=== PATIENT | male | born 1980 | race African-American/Black ===

== ENCOUNTER 2017-12-18 05:48 | Inpatient (IN) | payer OTHER, SELFPAY ==
[2017-12-18] VITALS (16 sets, daily range): BP systolic 90–149; BP diastolic 59–102; PULSE 56–80; RESP 14–25; TEMP 36.1–36.7; O2SAT 94–100
--- NOTE | 2017-12-18 05:49 | ED.ABDPAIN ---
HPI - Abdominal Pain <Momo Sage DO - Last Filed: 12/18/17 18:59> General Chief Complaint: Abdominal Pain Stated Complaint: ADMINAL PAIN X1 DAY Time Seen by Provider: 12/18/17 05:49 Source: patient Mode of arrival: ambulatory Limitations: no limitations History of Present Illness HPI narrative: 37-year-old male here for evaluation of abdominal pain. Patient states that it started approximately 9 o'clock last evening. He states it has been consistent since then. He states that he has a baseline abdominal pain that worsens in a cramping like feeling. He stated that he also had diarrhea last night that was nonbloody that did changes abdominal pain. Also had nausea and vomiting last evening which did not changes abdominal pain. He states that he has had a bowel obstruction in the past with an unknown etiology however did not have any surgery for this. No prior abdominal surgeries. Related Data Home Medications Medication Instructions Recorded Confirmed No Known Home Medications 12/18/17 12/18/17 Allergies Allergy/AdvReac Type Severity Reaction Status Date / Time No Known Drug Allergies Allergy Verified 12/18/17 05:55 Review of Systems <DO Suzanne Lawson Last Filed: 12/18/17 18:59> Constitutional Denies fatigue and Denies fever(s) Cardiovascular Denies chest pain and Denies dyspnea Respiratory Denies dyspnea Gastrointestinal Gastrointestinal: Reports abdominal pain, Denies constipation, Reports diarrhea, Reports nausea and Reports vomiting Genitourinary Denies dysuria Musculoskeletal Denies myalgias and Denies arthralgias Integumentary/Breasts Denies lesions and Denies rash Endocrine Denies fatigue Hematologic/Lymphatic Denies easy bleeding and Denies easy bruising Exam <DO Suzanne Lawson Last Filed: 12/18/17 18:59> Initial Vital Signs Initial Vital Signs: Vital Signs Temperature 97.9 F 12/18/17 05:51 Pulse Rate 80 12/18/17 05:51 Respiratory Rate 14 12/18/17 05:51 Blood Pressure 144/89 H 12/18/17 05:51 Pulse Oximetry 100 12/18/17 05:51 Const General: cooperative, No comfortable ( uncomfortable.), well developed, well groomed and No acute distress Orientation: alert, awake and oriented x3 HENMT Head: normal to inspection and normocephalic Resp Effort & Inspection: normal respiratory effort Auscultation: clear to auscultation bilaterally Cardio Rate: regular rate Rhythm: regular rhythm Pulses: radial pulses present GI Inspection: non-distended Palpation: soft, No firm, No guarding, No rigid and tender ( Diffuse abdominal tenderness) Skin Lesions: no lesions Rashes: no rashes Neuro General: alert, awake and oriented x3 Extrem General: capillary refill normal Psych Appearance: grossly normal and well kempt <Coco Pierce, DO - Last Filed: 12/18/17 10:25> Initial Vital Signs Initial Vital Signs: Vital Signs Temperature 97.9 F 12/18/17 05:51 Pulse Rate 80 12/18/17 05:51 Respiratory Rate 14 12/18/17 05:51 Blood Pressure 144/89 H 12/18/17 05:51 Pulse Oximetry 100 12/18/17 05:51 Course <Momo Sage, DO - Last Filed: 12/18/17 18:59> Orders Ordered: Al Hydrox/Mg Hydrox/Simethicone (Maalox Plus) 30 ml PO Q6HR WAI Last Admin: 12/18/17 17:53 Dose: 30 ml Docusate Sodium (Colace) 100 mg PO BID PRN PRN Reason: Constipation Dextrose/Sodium Chloride (Dextrose 5%-0.45% Ns) 1,000 mls @ 100 mls/hr IV CONT WAI Last Admin: 12/18/17 14:22 Dose: 100 mls/hr Ibuprofen (Advil) 600 mg PO Q6HR PRN PRN Reason: As Needed for Fever/Mild Pain Last Admin: 12/18/17 17:53 Dose: 600 mg Metoclopramide HCl (Reglan) 10 mg IV Q4H PRN PRN Reason: Nausea Last Admin: 12/18/17 18:20 Dose: 10 mg Morphine Sulfate (Morphine) 2 mg IV Q4HR PRN PRN Reason: Pain, Moderate (4-6) Ondansetron HCl (Zofran) 4 mg IV Q6HR PRN PRN Reason: Nausea Last Admin: 12/18/17 16:09 Dose: 4 mg Oxycodone/Acetaminophen (Percocet 5/325) 1 tab PO Q4HR PRN PRN Reason: Pain, Moderate (4-6) Ranitidine HCl (Zantac) 150 mg PO BID [facility] Discontinued Medications Sodium Chloride 1,000 ml/ (Bacitracin 50,000 unit) 0 ml IRR NOW ONE Stop: 12/18/17 12:33 Last Admin: 12/18/17 12:32 Dose: 50,000 irrig.soln Fentanyl (Sublimaze) 50 mcg IV Q5MIN PRN PRN Reason: Pain, Moderate (4-6) Hydromorphone HCl (Dilaudid) 0.5 mg IV NOW ONE Stop: 12/18/17 08:05 Last Admin: 12/18/17 08:15 Dose: 0.5 mg Hydromorphone HCl (Dilaudid) 0.5 mg IV Q5MIN PRN PRN Reason: Pain, Moderate (4-6) Hydromorphone HCl (Dilaudid) 0.5 mg IV Q5MIN PRN PRN Reason: Pain, Moderate (4-6) Sodium Chloride (Normal Saline 0.9%) 1,000 mls @ 1,000 mls/hr IV BOLUS ONE Stop: 12/18/17 06:57 Last Infusion: 12/18/17 09:16 Dose: 0 mls/hr Admin: 12/18/17 06:14 Dose: 1,000 mls/hr Cefotetan Disodium/Dextrose (Cefotan) 2 gm in 50 mls @ 100 mls/hr IV NOW ONE Stop: 12/18/17 10:51 Last Infusion: 12/18/17 11:29 Dose: 0 mls/hr Admin: 12/18/17 11:20 Dose: 100 mls/hr Lactated Ringer's (Lactated Ringers) 1,000 mls @ 100 mls/hr IV CONT WAI Last Infusion: 12/18/17 13:33 Dose: 0 mls/hr Admin: 12/18/17 10:15 Dose: 100 mls/hr Lactated Ringer's (Lactated Ringers) 1,000 mls @ 42 mls/hr IV CONT WAI Influenza Virus Vaccine (Flu Vaccine) 0.5 ml IM .ONCE ONE Stop: 12/18/17 18:39 Lorazepam (Ativan) 0.25 mg IV Q30MIN PRN PRN Reason: Anxiety Meperidine HCl (Demerol) 12.5 mg IV NOW PRN PRN Reason: Mild pain or shivering Meperidine HCl (Demerol) 25 mg IV Q5MIN PRN PRN Reason: Pain or shivering Metoclopramide HCl (Reglan) 10 mg IV NOW PRN PRN Reason: Nausea And Vomiting Last Admin: 12/18/17 13:45 Dose: 10 mg Morphine Sulfate (Morphine) 4 mg IV NOW ONE Stop: 12/18/17 05:59 Last Admin: 12/18/17 06:14 Dose: 4 mg Morphine Sulfate (Morphine) 1 mg IV Q2HR PRN PRN Reason: Pain, Moderate (4-6) Last Admin: 12/18/17 10:09 Dose: 1 mg Ondansetron HCl (Zofran) 4 mg IV NOW ONE Stop: 12/18/17 05:59 Last Admin: 12/18/17 06:14 Dose: 4 mg Vital Signs - 8 hr 12/18/17 12:35 12/18/17 12:40 12/18/17 12:45 Temperature 97.7 F 97.7 F 97.5 F L Pulse Rate 77 77 72 Respiratory Rate 16 18 20 Blood Pressure 93/63 93/63 93/64 Pulse Oximetry 100 100 100 12/18/17 13:00 12/18/17 13:15 12/18/17 13:30 Temperature 97 F L 97 F L 98 F Pulse Rate 66 65 56 L Respiratory Rate 16 25 H 16 Blood Pressure 94/65 108/78 101/70 Pulse Oximetry 100 96 100 12/18/17 13:45 12/18/17 14:00 12/18/17 14:10 Temperature 98 F 97.1 F L Pulse Rate 67 58 L Respiratory Rate 16 14 Blood Pressure 107/67 122/70 Pulse Oximetry 100 100 100 12/18/17 14:30 12/18/17 15:00 12/18/17 16:00 Temperature 98.0 F 97.0 F L 97.2 F L Pulse Rate 70 73 Respiratory Rate 16 16 16 Blood Pressure 101/61 100/59 L 90/59 L Pulse Oximetry 100 99 94 <Coco Pierce DO - Last Filed: 12/18/17 10:25> Orders Ordered: Al Hydrox/Mg Hydrox/Simethicone (Maalox Plus) 30 ml PO Q6HR WAI Last Admin: 12/18/17 17:53 Dose: 30 ml Docusate Sodium (Colace) 100 mg PO BID PRN PRN Reason: Constipation Dextrose/Sodium Chloride (Dextrose 5%-0.45% Ns) 1,000 mls @ 100 mls/hr IV CONT WAI Last Admin: 12/18/17 14:22 Dose: 100 mls/hr Ibuprofen (Advil) 600 mg PO Q6HR PRN PRN Reason: As Needed for Fever/Mild Pain Last Admin: 12/18/17 17:53 Dose: 600 mg Metoclopramide HCl (Reglan) 10 mg IV Q4H PRN PRN Reason: Nausea Last Admin: 12/18/17 18:20 Dose: 10 mg Morphine Sulfate (Morphine) 2 mg IV Q4HR PRN PRN Reason: Pain, Moderate (4-6) Ondansetron HCl (Zofran) 4 mg IV Q6HR PRN PRN Reason: Nausea Last Admin: 12/18/17 16:09 Dose: 4 mg Oxycodone/Acetaminophen (Percocet 5/325) 1 tab PO Q4HR PRN PRN Reason: Pain, Moderate (4-6) Ranitidine HCl (Zantac) 150 mg PO BID WAI Discontinued Medications Sodium Chloride 1,000 ml/ (Bacitracin 50,000 unit) 0 ml IRR NOW ONE Stop: 12/18/17 12:33 Last Admin: 12/18/17 12:32 Dose: 50,000 irrig.soln Fentanyl (Sublimaze) 50 mcg IV Q5MIN PRN PRN Reason: Pain, Moderate (4-6) Hydromorphone HCl (Dilaudid) 0.5 mg IV NOW ONE Stop: 12/18/17 08:05 Last Admin: 12/18/17 08:15 Dose: 0.5 mg Hydromorphone HCl (Dilaudid) 0.5 mg IV Q5MIN PRN PRN Reason: Pain, Moderate (4-6) Hydromorphone HCl (Dilaudid) 0.5 mg IV Q5MIN PRN PRN Reason: Pain, Moderate (4-6) Sodium Chloride (Normal Saline 0.9%) 1,000 mls @ 1,000 mls/hr IV BOLUS ONE Stop: 12/18/17 06:57 Last Infusion: 12/18/17 09:16 Dose: 0 mls/hr Admin: 12/18/17 06:14 Dose: 1,000 mls/hr Cefotetan Disodium/Dextrose (Cefotan) 2 gm in 50 mls @ 100 mls/hr IV NOW ONE Stop: 12/18/17 10:51 Last Infusion: 12/18/17 11:29 Dose: 0 mls/hr Admin: 12/18/17 11:20 Dose: 100 mls/hr Lactated Ringer's (Lactated Ringers) 1,000 mls @ 100 mls/hr IV CONT WAI Last Infusion: 12/18/17 13:33 Dose: 0 mls/hr Admin: 12/18/17 10:15 Dose: 100 mls/hr Lactated Ringer's (Lactated Ringers) 1,000 mls @ 42 mls/hr IV CONT WAI Influenza Virus Vaccine (Flu Vaccine) 0.5 ml IM .ONCE ONE Stop: 12/18/17 18:39 Lorazepam (Ativan) 0.25 mg IV Q30MIN PRN PRN Reason: Anxiety Meperidine HCl (Demerol) 12.5 mg IV NOW PRN PRN Reason: Mild pain or shivering Meperidine HCl (Demerol) 25 mg IV Q5MIN PRN PRN Reason: Pain or shivering Metoclopramide HCl (Reglan) 10 mg IV NOW PRN PRN Reason: Nausea And Vomiting Last Admin: 12/18/17 13:45 Dose: 10 mg Morphine Sulfate (Morphine) 4 mg IV NOW ONE Stop: 12/18/17 05:59 Last Admin: 12/18/17 06:14 Dose: 4 mg Morphine Sulfate (Morphine) 1 mg IV Q2HR PRN PRN Reason: Pain, Moderate (4-6) Last Admin: 12/18/17 10:09 Dose: 1 mg Ondansetron HCl (Zofran) 4 mg IV NOW ONE Stop: 12/18/17 05:59 Last Admin: 12/18/17 06:14 Dose: 4 mg Vital Signs - 8 hr 12/18/17 12:35 12/18/17 12:40 12/18/17 12:45 Temperature 97.7 F 97.7 F 97.5 F L Pulse Rate 77 77 72 Respiratory Rate 16 18 20 Blood Pressure 93/63 93/63 93/64 Pulse Oximetry 100 100 100 12/18/17 13:00 12/18/17 13:15 12/18/17 13:30 Temperature 97 F L 97 F L 98 F Pulse Rate 66 65 56 L Respiratory Rate 16 25 H 16 Blood Pressure 94/65 108/78 101/70 Pulse Oximetry 100 96 100 12/18/17 13:45 12/18/17 14:00 12/18/17 14:10 Temperature 98 F 97.1 F L Pulse Rate 67 58 L Respiratory Rate 16 14 Blood Pressure 107/67 122/70 Pulse Oximetry 100 100 100 12/18/17 14:30 12/18/17 15:00 12/18/17 16:00 Temperature 98.0 F 97.0 F L 97.2 F L Pulse Rate 70 73 Respiratory Rate 16 16 16 Blood Pressure 101/61 100/59 L 90/59 L Pulse Oximetry 100 99 94 MDM - Abdominal Pain <Momo Sage DO - Last Filed: 12/18/17 18:59> Lab Data Attestation: I reviewed the patient's lab results. Result diagrams: 12/18/17 06:05 12/18/17 06:05 Lab Results 12/18/17 12/18/17 12/18/17 Range/Units 06:05 06:05 06:05 WBC 8.5 (4.5-11.0) X10^3/uL RBC 5.76 (4.5-5.9) X10^6/uL Hgb 16.0 (13.5-17.5) g/dL Hct 46.7 (41-53) % MCV 81.0 (80-100) fL MCH 27.7 (26-34) PG MCHC 34.2 (30-36) % RDW 13.5 (11.6-14.8) % Plt Count 171 (150-400) X10^3/uL Neut % (Auto) 75.0 (50-75) % Lymph % (Auto) 19.7 L (25-40) % [place] % (Auto) 4.3 (3-14) % Eos % (Auto) 0.3 L (2-4) % Baso % (Auto) 0.7 (0-2) % Neut # (Auto) 6400 H (5543-2467) /uL Sodium 147 H (137-145) mmol/L Potassium 3.8 (3.4-5.1) mmol/L Chloride 101 (98-107) mmol/L Carbon Dioxide 34 H (22-32) mmol/L BUN 15 (9-20) mg/dL Creatinine 1.10 (0.66-1.25) mg/dL Estimated GFR > 60.0 (>60) mL/min BUN/Creatinine Ratio 13.6 (6-22) Glucose 114 H (70-100) mg/dL Lactate 1.3 (0.7-2.1) mmol/L Calcium 10.1 (8.4-10.2) mg/dL Total Bilirubin 0.8 (0.2-1.3) mg/dL AST 23 (17-59) IU/L ALT 27 (21-72) IU/L Alkaline Phosphatase 67 (38-126) U/L Total Protein 8.2 (6.3-8.2) g/dL Albumin 4.7 (3.5-5.0) g/dL Globulin 3.5 (1.7-4.1) g/dL Albumin/Globulin Ratio 1.3 (1.0-2.8) Lipase 59 (23-300) U/L Point of care testing: Point of Care Testing Glucose POC 108 MDM Narrative Medical decision making narrative: Labs unremarkable. Awaiting results of CT scan. Care turned over today provider at change of shift for disposition after return of CT scan <Coco Pierce, DO - Last Filed: 12/18/17 10:25> Medical Records Attestation: I reviewed the patient's medical records. Lab Data Attestation: I reviewed the patient's lab results. Lab Results 12/18/17 12/18/17 12/18/17 Range/Units 06:05 06:05 06:05 WBC 8.5 (4.5-11.0) X10^3/uL RBC 5.76 (4.5-5.9) X10^6/uL Hgb 16.0 (13.5-17.5) g/dL Hct 46.7 (41-53) % MCV 81.0 (80-100) fL MCH 27.7 (26-34) PG MCHC 34.2 (30-36) % RDW 13.5 (11.6-14.8) % Plt Count 171 (150-400) X10^3/uL Neut % (Auto) 75.0 (50-75) % Lymph % (Auto) 19.7 L (25-40) % [place] % (Auto) 4.3 (3-14) % Eos % (Auto) 0.3 L (2-4) % Baso % (Auto) 0.7 (0-2) % Neut # (Auto) 6400 H (6802-2550) /uL Sodium 147 H (137-145) mmol/L Potassium 3.8 (3.4-5.1) mmol/L Chloride 101 (98-107) mmol/L Carbon Dioxide 34 H (22-32) mmol/L BUN 15 (9-20) mg/dL Creatinine 1.10 (0.66-1.25) mg/dL Estimated GFR > 60.0 (>60) mL/min BUN/Creatinine Ratio 13.6 (6-22) Glucose 114 H (70-100) mg/dL Lactate 1.3 (0.7-2.1) mmol/L Calcium 10.1 (8.4-10.2) mg/dL Total Bilirubin 0.8 (0.2-1.3) mg/dL AST 23 (17-59) IU/L ALT 27 (21-72) IU/L Alkaline Phosphatase 67 (38-126) U/L Total Protein 8.2 (6.3-8.2) g/dL Albumin 4.7 (3.5-5.0) g/dL Globulin 3.5 (1.7-4.1) g/dL Albumin/Globulin Ratio 1.3 (1.0-2.8) Lipase 59 (23-300) U/L Point of care testing: Point of Care Testing Glucose POC [address] scan - abdomen: Radiologist's impression: power and recovery shift engineer report: No oral or rectal contrast is present. There is moderate fluid and gas in the stomach and mild fluid in the duodenal bulb. Collapsed duodenum and few collapse to Junel do. There is abnormal E dilated fluid-filled mid small bowel in the lower abdomen and upper pelvis, maximum diameter about 3.4 cm. Collapsed terminal ileal loops seen in the right lower quadrant. Findings consistent with high-grade small-bowel obstruction, zone of transition possibly near the right anterior pelvic side wall involving mid to distal small bowel. It may be more inferiorly to the pelvis. Most of the colon is collapsed. MDM Narrative Medical decision making narrative: Patient signed out to me by Dr. Sage. I have seen evaluated patient myself. Abdomen remains tender mild distension he is no longer feeling nauseated I have spoken with Dr. Ceja surgery who requested NG tube and he will see and evaluate patient later. After evaluation patient her needed NG tube. Patient will be admitted to floor possible surgery. Discharge Plan Departure Patient Disposition: Admitted As Inpatient Clinical Impression: SBO (small bowel obstruction) Discharge Date/Time: 12/18/17 09:32 Interventions: ED Discharge Assessment Last Done: 12/18/17 09:30 Admit Date/Time: 12/18/17 09:02 Admit Provider: Guilherme Mclain
--- NOTE | 2017-12-18 05:59 | DI.CT.S_ITS ---
PROCEDURE: CT ABDOMEN PELVIS W CON INDICATIONS: generalized abd pain TECHNIQUE: After the administration of intravenous contrast, 5 mm thick sections acquired from the diaphragm to the symphysis. 5 mm coronal and sagittal reformats were acquired. For radiation dose reduction, the following was used: automated exposure control, adjustment of mA and/or kV according to patient size. COMPARISON: None. FINDINGS: Image quality: Excellent. ABDOMEN: Lung bases: Lung bases are clear. Heart size is normal. Solid organs: Liver is enlarged. Gallbladder is unremarkable. Biliary system is non dilated. Pancreas enhances normally. Spleen is normal in size and enhancement. No adrenal nodules. Kidneys demonstrate normal size and enhancement, without hydronephrosis. Peritoneum and bowel: There are probably dilated fluid filled loops of small bowel within the lower abdomen and pelvis. Duodenum and jejunum appear collapsed. Terminal ileum also appears collapsed as well as nondistended colon. Transition point appears to be within the anterior right pelvic sidewall. No visualized free air. Minimal pelvic free fluid. Nodes and vessels: No retroperitoneal or mesenteric adenopathy by size criteria. Aorta and inferior vena cava are normal in size. Miscellaneous: No ventral hernias. PELVIS: Genitourinary: Bladder wall thickness is normal. Miscellaneous: No inguinal hernias or adenopathy. Bones: No suspicious bony lesions. No vertebral body compression fractures. IMPRESSION: 1. High-grade small bowel obstruction with transition point suspected in the anterior right pelvic sidewall. No free air. Dictated by: Vanesa Sanford M.D. on 12/18/2017 at 9:32 Approved by: Vanesa Sanford M.D. on 12/18/2017 at 9:36
--- NOTE | 2017-12-18 06:13 | PC.NURSE ---
Pt appears to be very uncomfortable. pt keeps moving trying to get comfortable. he states his pain comes in waves or cramps. when a cramp occurs pt is unable to speak. pt family brought back to bedside. Pt stated this is really hurting you when pt asked for pain medication. states he never wants anything for pain.
[2017-12-18] MEDS: MORPHINE 4 MG/ML INJ IV (06:14)
[2017-12-18] MEDS: SODIUM CHLORIDE 0.9% 1,000 ML 1000 ML IV (06:14)
[2017-12-18] MEDS: ONDANSETRON 4 MG/2 ML INJ IV ×3 (06:14→21:09)
[2017-12-18 06:18] LABS: Add Manual Diff / Slide Review NO; Basophils Percent Auto 0.7 % (0-2); Eosinophils Percent Auto 0.3 % (2-4); Hematocrit 46.7 % (41-53); Lymphocytes Percent Auto 19.7 % (25-40); Mean Corpuscular HGB Conc 34.2 % (30-36); Mean Corpuscular Hemoglobin 27.7 PG (26-34); Monocytes Percent Auto 4.3 % (3-14); Neutrophils Absolute Auto 6400 /uL (3000-5900); Platelet Count 171 X10^3/uL (150-400); Red Blood Cell Count 5.76 X10^6/uL (4.5-5.9); Red Cell Distribution Width 13.5 % (11.6-14.8); White Blood Cell Count 8.5 X10^3/uL (4.5-11.0)
[2017-12-18 06:24] LABS: Alanine Aminotransferase 27 IU/L (21-72); Albumin 4.7 g/dL (3.5-5.0); Albumin Globulin Ratio 1.3 (1.0-2.8); Alkaline Phosphatase 67 U/L (38-126); Aspartate Aminotransferase 23 IU/L (17-59); BUN Creatinine Ratio 13.6 (6-22); Bilirubin Total 0.8 mg/dL (0.2-1.3); Blood Urea Nitrogen 15 mg/dL (9-20); Calcium 10.1 mg/dL (8.4-10.2); Carbon Dioxide 34 mmol/L (22-32); Chloride 101 mmol/L (98-107); Estimated Glomerular Filt Rate > 60.0 mL/min (>60); Globulin 3.5 g/dL (1.7-4.1); Glucose 114 mg/dL (70-100); HEMOLYSIS < 15 (0-50); Lipase 59 U/L (23-300); Potassium 3.8 mmol/L (3.4-5.1); Sodium 147 mmol/L (137-145); Total Protein 8.2 g/dL (6.3-8.2)
[2017-12-18 06:25] LABS: Lactate (Lactic Acid) 1.3 mmol/L (0.7-2.1)
[2017-12-18] MEDS: HYDROMORPHONE 1 MG INJ 0.5 MG IV (08:15)
[2017-12-18] MEDS: MORPHINE 2 MG/ML INJ 1 MG IV (10:09)
[2017-12-18] MEDS: LACTATED RINGERS 1,000 ML 100 ML IV (10:15)
[2017-12-18] MEDS: CEFOTETAN 2 GM/50 ML PIGGYBACK IV (11:20)
--- NOTE | 2017-12-18 11:49 | SUR.OPER ---
Supine on padded OR bed, head on pillow, arms secured on padded arm boards at <90 degrees abduction, legs uncrossed, safety belt at thigh, tape over blanket over lower legs.
[2017-12-18] MEDS: SODIUM CHLORIDE IRRIG SOLUTION 1,000 ML, BACITRACIN 50,000 UNIT IRR (12:32)
--- NOTE | 2017-12-18 13:30 | SUR.PHASEI ---
[address] whittington at bedside
--- NOTE | 2017-12-18 13:39 | HP_ITS ---
DATE OF SERVICE: 12/18/2017 HISTORY OF PRESENT ILLNESS: The patient is 37-year-old [facility] male who comes the emergency room was sudden onset of severe abdominal pain and vomiting. Pain is a 10/10. He had a CT scan done which shows a high-grade small-bowel obstruction in the terminal ilium with a very well-defined endpoint. The peculiar part of his history is the patient has had no prior abdominal surgery, and he had a very similar identical episode about 2-1/2 years ago. Nothing was done at that point. The obstruction seemed to be relieved, and he has gone on for last 2 years with no significant symptoms abdominal pain and vomiting. The patient denies history which would make one think of Crohns disease. Denies hematochezia or diarrhea. He has no other medical or surgical disorders. PAST MEDICAL HISTORY: Denies diabetes, heart disease, or hypertension. PAST SURGICAL HISTORY: He has no prior surgery. ALLERGIES: HAS NO KNOWN ALLERGIES. MEDICATIONS: Takes no medications REVIEW OF SYSTEMS: Negative or chest pain or unusual or shortness breath. G.I. is as mentioned in HPI. : Negative. NEUROLOGIC: Negative for strokes or seizures. PHYSICAL EXAMINATION VITAL SIGNS: Temperature 97.7, blood pressure 150/100, heart rate 62. HEENT: Ears, nose, and throat normal. NECK: No adenopathy. CHEST: Lungs are clear. HEART: Regular rhythm. No murmur. ABDOMEN: Somewhat distended, tender in the right periumbilical area and toward the left lower quadrant. IMPRESSION: Recurrent small-bowel obstruction, unknown etiology. PLAN: I have had a zia and lengthy discussion with the patient and his family who understand clearly that is difficult to evaluate the small bowel with scopes. We may or may not be able to enter the terminal ilium with the colonoscope, and certainly capsule endoscopy with photographs taken as the capsule passes the small bowel might be indicated but then again may get obstructed at that point, so I have offered the patient's exploratory laparotomy suggesting the strong possibility of a small-bowel resection for what could be a benign tumor, could be a stricture, could be related to some other inflammatory process that we are not aware of in this patient with very negative past medical history. So, he agrees him would like to have open incision and correction of this problem which has been incapacitating, so we will plan exploratory laparotomy and small-bowel resection at this time. PETER COLLINS - Lindsey/ doc#: [id number]/job#: [id number] dd: 12/18/2017 10:21:00 dt: 12/18/2017 12:24:00 DICTATING /COPIES TO: Guilherme Mclain MD COPIES MNE: DEBRA
--- NOTE | 2017-12-18 13:44 | OP_ITS ---
DATE OF SERVICE: 12/18/2017 PREOP DIAGNOSIS: Small-bowel obstruction, unknown etiology. 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 PROCEDURE: Exploratory laparotomy, evacuation of obstructing phytobezoar from distal jejunum, early ileum. SURGEON: Guilherme Mclain MD DESCRIPTION OF PROCEDURE: The patient was given a general endotracheal anesthetic plus a supplemental epidural by the anesthesiologist. He was properly identified during surgical pause, prepped and draped in a sterile fashion exposing the lower abdomen. A low midline incision was made. The abdomen explored. I evacuated the distended small bowel, placed an Leo wound protector/retractor in the midline incision, and ran the bowel from the ligament of Treitz to the ileocecal valve. In the distal jejunum, there was a mass of what turned out to be a phytobezoar obstructing the lumen. I actually could milk that bezoar distally with my fingers, elected not to try to milk it all the way to the colon. It was about 5- cm long and completely distended and obstructed the small-bowel lumen at that point. The area containing that bezoar had no lead point of obstructing tissue no sign of tumor, no abnormality in the mesentery, no palpable mass within the bowel itself. So I placed a purse string of 3-0 Vicryl in the sidewall of the anti-mesenteric surface of the jejunum and evacuated the bezoar by compression using forceps and irrigation and completely removed what appeared to be some yellowish fiber vegetation that the patient had ingested. He had just gotten back from [place] several days ago, so it may have some relationship to that trip. In any event, once this was completely evacuated, I closed the pursestring suture and then oversewed that area of Lambert sutures of 3-0 silk to completely bury the enterotomy that I made to evacuate the bezoar. Then, I very carefully inspected and palpated that segment of bowel again. I could not find nor palpate any obstructing tumor or intussusception or any such abnormality that I was looking for. After irrigating the abdomen with copious amounts of bacitracin saline, I close a fashion with #1 Maxon, close the subq with Vicryl and stapled the skin. During the evacuation of the bezoar, there was absolutely no spillage of any material into the peritoneal cavity. The procedure was well tolerated, with sterile dressing applied. PETER COLLINS - Lindsey/ doc#: [id number]/job#: [id number] dd: 12/18/2017 12:46:00 dt: 12/18/2017 13:18:00 DICTATING /COPIES TO: Guilherme Mclain MD COPIES MNE: DEBRA
[2017-12-18] MEDS: METOCLOPRAMIDE 10 MG/2 ML INJ IV ×2 (13:45→18:20)
[2017-12-18] MEDS: DEXTROSE 5%-0.45% NS 1,000 ML 100 ML IV (14:22)
[2017-12-18] MEDS: MAG HYDROX/ALUM/SIMETH 30 ML UDC PO (17:53)
[2017-12-18] MEDS: IBUPROFEN 600 MG TABLET PO (17:53)
--- NOTE | 2017-12-18 22:39 | PC.NURSE ---
Addendum entered by Valerie Parekh R.N. 12/18/17 23:47: Dr Ceja orders to let pt try to urinate later on tonight, if pt gets uncomfortable, then straight catheter in/out once. Pt denies pain and reports I'll be able to go later on. Pt is back to bed resting with eyes closed. Original Note: 2130-Pt N/V 700mL emesis, clear light yellow (apple juice/water). Medicated with zofran 4mL IVP, effective. Pt up to BRP to void but unsuccessful. States its right there, but I can't get it out. Bladder scanned for 360mL. Pt back to bed to try in a short while. Pt understands to urinate and catheterization if unable to urinate. earlier @ 1600 pt c/o nausea, medicated with zofran, effective. 1829 pt c/o nausea again, medicated with raglan 10mg, effective. BT +, denies pain throughout shift. LFA D5 1/2 NS @ 100. Pt remains sleepy, but awakens easily.
[2017-12-19 00:30] VITALS: BP 115/67; PULSE 60; RESP 16; TEMP 36.2; O2SAT 97
[2017-12-19] MEDS: DEXTROSE 5%-0.45% NS 1,000 ML 100 ML IV ×3 (00:46→17:18)
[2017-12-19] MEDS: METOCLOPRAMIDE 10 MG/2 ML INJ IV (00:46)
[2017-12-19] MEDS: MAG HYDROX/ALUM/SIMETH 30 ML UDC PO ×2 (05:32→19:49)
[2017-12-19 06:14] VITALS: BP 125/86; PULSE 68; RESP 16; TEMP 36.7; O2SAT 97
[2017-12-19 07:15] VITALS: BP 131/88; PULSE 62; RESP 18; TEMP 36.8; O2SAT 99
--- NOTE | 2017-12-19 09:20 | CM.DANOTE ---
DCP/Continued: Reviewed chart. Patient is a 37yr old male admitted to [facility] with abdominal pain. PCP is [facility] in [place]. Primary payor is 1)[employer]. Met with patient and spouse at bedside explained CM/SW role. Patient with SBO and underwent surgery on 12-18-17. Patient reports that he is completely I in all ADL's and plans to return home when medically stable. P: Home when stable. YULIANA Ni Discharge Planning/Care Management CM Discharge Assessment Start: 12/19/17 09:15 Freq: Status: Active Protocol: Document 12/19/17 09:15 KJS (Rec: 12/19/17 09:20 KJS [id number]) Discharge Planning Assessment Assigned Inventory Planner YULIANA Ni Contact Information Brittany Simons (spouse) Advance Directives? No History Provided By Patient Significant Other Has Patient been admitted in last 30 No days? Prior Living Arrangements House Household Members spouse Type of transporation used prior to Drives own vehicle admit Independent with ADL's Yes Is patient alert and oriented? Yes Caregiver for Another No Barriers to Discharge No Discharge Plan Home Transportation Arrangement Spouse will provide transport home. Referrals Initiated None needed Whiteboard Updated in Patient Room with Yes name and ext. # of Inventory Planner Please Provide Date Initial DC 12/19/17 Assessment Was Performed
[2017-12-19 11:45] VITALS: BP 124/83; PULSE 64; RESP 18; TEMP 36.8; O2SAT 98
--- NOTE | 2017-12-19 13:29 | PC.NURSE ---
Pt had order to advance diet as tolerated, gave him clear liquids at breakfast, full liquids at lunch, and has had no complaints of nausea, pain, and is passing flatus. Advanced him to regular diet for dinner.
--- NOTE | 2017-12-19 14:29 | PM.PN.1 ---
Subjective Date Patient Seen: 12/19/17 Time Patient Seen: 14:29 Interval history: Very pleasant gentleman who is postop day 1 after exploratory laparotomy with excision of a small-bowel phyto bezoar. He reports he is feeling well. He did have a bowel movement this morning and has been walking in the halls. He has been tolerating clear liquids without difficulty. He denies any significant pain at this point. He denies any nausea. Exam Vital Signs (past 8 hours): - 12/19/17 07:15 Temperature 98.2 F Pulse Rate 62 Respiratory Rate 18 Blood Pressure 131/88 Pulse Oximetry 99 Oxygen Delivery Method Room Air Oxygen Flow Rate 0 Narrative Exam Narrative: Lungs: Clear to auscultation bilaterally Heart: Regular rate and rhythm Abdomen: Soft, appropriately mildly tender to palpation. Hypoactive bowel sounds. Dressing is clean dry and intact. No erythema or bruising noted. Extremities: Warm and well perfused without edema Objective Labs Result Diagrams: 12/18/17 06:05 12/18/17 06:05 Assessment & Plan Plan: Assessment/Plan Narrative: Postop day 1 after exploratory laparotomy and removal of phyto bezoar from the small bowel. Pain is well controlled. Will advance to soft mechanical diet and continue ambulation. Plan for discharge tomorrow if he continues to do well. Quality VTE Deep Vein Thrombosis/Pulmonary Embolism Present on Admission: No
[2017-12-19 15:54] VITALS: PULSE 82; RESP 18; TEMP 37.1; O2SAT 100
[2017-12-19] MEDS: IBUPROFEN 600 MG TABLET PO (17:15)
[2017-12-19 20:00] VITALS: BP 126/78; PULSE 79; RESP 18; TEMP 37; O2SAT 98
[2017-12-20 00:27] VITALS: BP 113/76; PULSE 66; RESP 17; TEMP 37.2; O2SAT 100
[2017-12-20] MEDS: MAG HYDROX/ALUM/SIMETH 30 ML UDC PO (00:28)
[2017-12-20] MEDS: OXYCODONE/ACETAMINOPHEN 5/325 TABLET 1 TAB PO ×5 (00:33→20:30)
[2017-12-20 00:35] VITALS: O2SAT 98
[2017-12-20] MEDS: DEXTROSE 5%-0.45% NS 1,000 ML 100 ML IV (03:29)
[2017-12-20 04:15] VITALS: BP 132/70; PULSE 69; RESP 17; TEMP 37.1; O2SAT 99
[2017-12-20] MEDS: MORPHINE 2 MG/ML INJ IV (08:00)
[2017-12-20 08:45] VITALS: BP 146/82; PULSE 51; RESP 16; TEMP 36.9; O2SAT 99
[2017-12-20] MEDS: IBUPROFEN 600 MG TABLET PO (10:49)
--- NOTE | 2017-12-20 11:19 | PC.NURSE ---
day shift pt having increased pain today from yesterday. discussed various pain medication options and will give pt oxycodone and ibuprofen when he requests. Morphine given once this AM so far to help get pain under control as it was a 10/21. Also provided pt with ice pack to help with pain which he states did help. pt states he is passing flatus but no BM yet. will continue to monitor.
[2017-12-20 11:35] VITALS: BP 119/68; PULSE 70; RESP 14; TEMP 36.9; O2SAT 98
[2017-12-20 16:11] VITALS: BP 114/73; PULSE 73; RESP 18; TEMP 36.9; O2SAT 99
--- NOTE | 2017-12-20 18:07 | P.PN_ITS ---
Subjective Date Patient Seen: 12/20/17 Time Patient Seen: 12:04 Interval history: Mr. Simons reports he has been feeling uncomfortable today. He says that for couple of days he did feel any pain but today he started to feel it. He has been passing gas and he has also had a bowel movement. He has been tolerating a regular diet pretty well. Until late this afternoon, Mr. Simons did not want to take his oral medication. He has been receiving IV narcotics for pain control per Exam Vital Signs (past 8 hours): - 12/20/17 11:35 12/20/17 16:11 Temperature 98.5 F 98.4 F Pulse Rate 70 73 Respiratory Rate 14 18 Blood Pressure 119/68 114/73 Pulse Oximetry 98 99 Oxygen Delivery Method Room Air Oxygen Flow Rate 0 Narrative Exam Narrative: Lungs: Clear bilaterally Heart: Regular rate and rhythm Abdomen: Soft, dressing is removed and the incision is examined. It is well approximated and there is no erythema, no drainage and no bruising apparent. Active bowel sounds. Extremities: Warm and well perfused Objective Labs Result Diagrams: 12/18/17 06:05 12/18/17 06:05 Assessment & Plan Plan: Assessment/Plan Narrative: Improving nicely after laparotomy for bowel obstruction caused by a phyto bezoar. I have encouraged Mr. Simons to use his pain medications. He will continue walking in the halls as he has been doing. If he continues to improve , he may be eligible for discharge tomorrow. Quality VTE Deep Vein Thrombosis/Pulmonary Embolism Present on Admission: No
[2017-12-20] MEDS: SODIUM CHLORIDE 0.9% FLUSH 10 ML IV (20:38)
[2017-12-21] VITALS: O2SAT 100
[2017-12-21 00:34] VITALS: BP 150/85; PULSE 67; RESP 16; TEMP 36.6; O2SAT 99
[2017-12-21] MEDS: OXYCODONE/ACETAMINOPHEN 5/325 TABLET 1 TAB PO ×4 (00:43→13:12)
[2017-12-21 04:46] VITALS: BP 131/78; PULSE 73; RESP 16; TEMP 36.9; O2SAT 98
[2017-12-21 07:30] VITALS: BP 130/72; PULSE 62; RESP 13; TEMP 36.6; O2SAT 98
[2017-12-21] MEDS: SODIUM CHLORIDE 0.9% FLUSH 10 ML IV (09:27)
--- NOTE | 2017-12-21 10:34 | PM.DS.1 ---
History of Present Illness Date Patient Seen: 12/21/17 Time Patient Seen: 10:34 Chief complaint: ADMINAL PAIN X1 DAY Narrative: Mr. Simons is a rudolph 37-year-old gentleman who presented to the emergency room with 1 day of abdominal pain. He was diagnosed with small-bowel obstruction and admitted to the surgical service. 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 Lopez was initially managed conservatively but when he failed to improve he was taken to the operating room for a laparotomy. At the time of surgical procedure, he was noted to have an obstructing mass in the small bowel consisting of vegetable matter. The small bowel was opened in this vegetable matter was removed. No bowel was resected. The patient was then returned to the floor for convalescence and supportive care. He improved quickly. On the date of discharge he is eating a regular diet, walking the halls unassisted, and his pain is controlled with oral medications. He is being discharged home in the care of his . Status at Discharge Cognitive/behavioral status at discharge: Normal Functional status at discharge: independent ambulation Overall status at discharge: patient is progressing back to baseline Time Spent with Patient Less than 30 minutes Exam Vital Signs (past 8 hours): - 12/21/17 04:46 12/21/17 07:30 Temperature 98.4 F 98 F Pulse Rate 73 62 Respiratory Rate 16 13 Blood Pressure 131/78 130/72 Pulse Oximetry 98 98 Oxygen Delivery Method Room Air Oxygen Flow Rate 0 Objective Labs Result Diagrams: 12/18/17 06:05 12/18/17 06:05 Discharge Plan Discharge Plan Patient Disposition: Home Discharge Med Rec/Prescriptions Prescriptions: New oxycodone-acetaminophen 5-325 mg Tablet 1 tab PO Q3H PRN (Reason: Pain, Moderate (4-6)) Qty: 30 RF: 0 No Action No Known Home Medications RF: 0 Follow up/Referrals: Jacqueline Pimentel MD [Physician] - 2 Weeks (please call & schedule a follow up appointment with dr pimentel for 2 wks from discharge [phone]) Provider Discharge Instructions Diet: Diet as Tolerated Activity: You may shower as desired. Do not soak the incision in water for at least 2 weeks. Wear your binder as desired for comfort. Remember to take a stool softener at least once or twice daily while using narcotic pain medication. Skin/Wound/Dressing Care Report to your healthcare provider any signs of infection, such as:: chills, fever, night sweats, increased pain and unusual drainage Visit Report/Discharge Packet Visit Report Forms: Stroke Signs & Symptoms Discharge Data Attending Provider: Guilherme Mclain Admit Date/Time: 12/18/17 09:02 Quality VTE Deep Vein Thrombosis/Pulmonary Embolism Present on Admission: No
--- NOTE | 2017-12-21 13:19 | PC.NURSE ---
Discharge order received, patient plans to go home with family. Discharge instructions and home care handouts reviewed wt patient, states understanding and has no further questions or concerns at this time. IV dc'd intact. Follow up appointment scheduled per patient's request for 01/[address] Farias. Patient's incision site remains TINT LAYER with julito intact. Patient given abdominal binder for comfort at home per discharge orders. Patient instructed to call MD office with questions or concerns.
--- NOTE | 2017-12-21 13:42 | PC.NURSE ---
Escorted out by student nurse via wheelchair to be discharged to home with , with all belongings.
== END 2017-12-21 13:30 | disposition home or self-care (01) | DRG 345 ==
LOC: ED 08:27 → AC 09:05
PROVIDERS: Emergency Medicine; Admitting Provider Surgery; Emergency Provider Emergency Medicine; Visit Provider Surgery
PROC: 0DCA0ZZ Extirpation of Matter from Jejunum, Open Approach (ICD-10-PCS; CPT 49000; principal; 2017-12-18 11:00)
DX: T18.3XXA Foreign body in small intestine, initial encounter (principal); K56.699 Other intestinal obstruction unspecified as to partial versus complete obstruction; X58.XXXA Exposure to other specified factors, initial encounter
CPT/HCPCS: 36591; 49000; 74177; 80053; 83605; 83690; 85025; 94762; 96361; 96374; 96375; 99222; 99283; 99285; J1100; J1170; J2270; J2274; J2405; J2704; J2765; Q9967